=== PATIENT | female | born 1935 | race Asian ===

== ENCOUNTER 2018-05-31 08:20 | Emergency (ER) | END 2018-05-31 11:58 | disposition home or self-care (01) ==

== ENCOUNTER 2018-07-16 10:58 | Emergency (ER) | END 2018-07-16 14:29 | disposition home or self-care (01) ==

== ENCOUNTER 2018-11-27 14:40 | Observation (INO) | payer BC, MEDICARE ==
[~2018-11-27] VITALS: Ht 157.5 cm; Wt 57.2 kg
[~2018-11-27 14:40] MED LIST: ATEN-51 PO; GEMF600T8 PO; RASA1TAB PO; SIN50200 PO
[2018-11-27] MEDS ORDERED: SOD CHLORIDE 0.9% 1,000 ML IV STA (15:33)
[2018-11-27] MEDS ORDERED: KETOROLAC 15 MG INJ IV STA (15:33)
--- NOTE | 2018-11-27 15:36 | ERD ---
ER Documentation Chief Complaint Chief Complaint glf-right shoulder, right wrist pain. no head injury HPI 83-year-old woman with a history of Parkinson's disease requiring walker for ambulation fell today and injured her right shoulder. She denies wrist or elbow pain and does not recall the entire episode. She states she has been feeling weak. She denies fevers or chills, no chest pain or shortness of breath, no headache or blurry vision. ROS All systems reviewed and are negative except as per history of present illness. Medications Home Meds Reported Medications Gemfibrozil* (Gemfibrozil*) 600 Mg Tablet, 600 MG PO BID, TAB 11/27/18 Atenolol* (Atenolol*) 25 Mg Tablet, 25 MG PO DAILY, #30 TAB 11/27/18 Discontinued Reported Medications Gemfibrozil* (Gemfibrozil*) 600 Mg Tablet, 600 MG PO BID, TAB 07/16/18 Atenolol* (Atenolol*) 25 Mg Tablet, 25 MG PO DAILY, #30 TAB 07/16/18 Rasagiline Mesylate* (Azilect*) 1 Mg Tablet, 1 MG PO DAILY, TAB 07/16/18 Carbidopa-Levodopa* (Sinemet CR*) 50-200 Mg Tabsr, 1 TAB PO QID, TAB 07/16/18 Allergies Allergies: Coded Allergies: Penicillins (Verified Allergy, Unknown, 11/27/18) aspirin (Verified Allergy, Unknown, 11/27/18) PMhx/Soc Hypertension, Parkinson's disease History of Surgery: Yes (NATASHA, Hysterectomy) Anesthesia Reaction: No Hx Neurological Disorder: Yes (PARKINSON'S) Hx Respiratory Disorders: No Hx Cardiac Disorders: Yes (HTN) Hx Psychiatric Problems: No Hx Miscellaneous Medical Probl: No Hx Alcohol Use: No Hx Substance Use: No Hx Tobacco Use: No Smoking Status: Never smoker FmHx Family History: No diabetes Physical Exam Vitals Vital Signs Date Temp Pulse Resp B/P (MAP) Pulse Ox O2 O2 Flow FiO2 Time Delivery Rate 11/27/18 77 17 152/70 97 Room Air 18:38 (97) 11/27/18 98.0 63 18 160/79 99 Room Air 17:21 (106) 11/27/18 62 18 99 21 16:56 11/27/18 98.1 72 18 142/64 98 15:12 (90) Physical Exam GENERAL: Well-developed, well-nourished, appears dehydrated, afebrile HEENT: Dry mucous membranes, pink conjunctiva, no cervical spine tenderness or step-off deformities, no goiter, no jaundice or icterus, extraocular movements intact without pain. No submandibular induration, and no pharyngeal erythema NEURO: Alert and oriented 2, able to answer questions and follow commands, no focal deficits or facial asymmetry CARDIAC: Regular rate and rhythm, no murmurs rubs or gallops LUNGS: Clear bilaterally no wheezing crackles or stridor ABDOMEN: Soft nontender, no guarding, no rigidity, no rebound, no psoas sign no obturator sign. Normoactive bowel sounds SKIN: Warm and dry to touch, no abrasions, contusions, or hematomas, no lacerations, no ecchymosis, no target lesions, and without ulcers EXTREMITIES: No clubbing cyanosis or edema, calves are bilaterally symmetrical, no Homans sign, no popliteal cord sign. Distal pulses equal and bilateral PSYCH: Normal affect without agitation or irritability Result Diagram: 11/27/18 1553 11/27/18 1553 Results 24 hrs Laboratory Tests Test 11/27/18 15:53 11/27/18 17:10 White Blood Count 7.1 10^3/ul Red Blood Count 4.12 10^6/ul Hemoglobin 12.2 g/dl Hematocrit 37.1 % Mean Corpuscular Volume 90.0 fl Mean Corpuscular Hemoglobin 29.6 pg Mean Corpuscular Hemoglobin Concent 32.9 g/dl Red Cell Distribution Width 13.2 % Platelet Count 214 10^3/UL Mean Platelet Volume 10.4 fl Immature Granulocytes % 0.600 % Neutrophils % 55.7 % Lymphocytes % 30.1 % Monocytes % 8.1 % Eosinophils % 5.1 % Basophils % 0.4 % Nucleated Red Blood Cells % 0.0 /100WBC Immature Granulocytes # 0.040 10^3/ul Neutrophils # 3.9 10^3/ul Lymphocytes # 2.1 10^3/ul Monocytes # 0.6 10^3/ul Eosinophils # 0.4 10^3/ul Basophils # 0.0 10^3/ul Nucleated Red Blood Cells # 0.0 10^3/ul Sodium Level 139 mmol/L Potassium Level 5.5 mmol/L Chloride Level 98 mmol/L Carbon Dioxide Level 32 mmol/L Anion Gap 9 Blood Urea Nitrogen 23 mg/dl Creatinine 0.81 mg/dl Est Glomerular Filtrat Rate mL/min mL/min Glucose Level 137 mg/dl Calcium Level 9.7 mg/dl Total Bilirubin 0.4 mg/dl Direct Bilirubin 0.00 mg/dl Indirect Bilirubin 0.4 mg/dl Aspartate Amino Transf (AST/SGOT) 25 IU/L Alanine Aminotransferase (ALT/SGPT) 10 IU/L Alkaline Phosphatase 73 IU/L Troponin I < 0.012 ng/ml Total Protein 8.0 g/dl Albumin 4.4 g/dl Globulin 3.60 g/dl Albumin/Globulin Ratio 1.22 Lipase 109 U/L Urine Color YELLOW Urine Clarity CLEAR Urine pH 6.0 Urine Specific [place] 1.012 Urine Ketones NEGATIVE mg/dL Urine Nitrite POSITIVE mg/dL Urine Bilirubin NEGATIVE mg/dL Urine Urobilinogen NEGATIVE mg/dL Urine Leukocyte Esterase 2+ Geni/ul Urine Microscopic RBC 1 /HPF Urine Microscopic WBC 28 /HPF Urine Bacteria MANY /HPF Urine Mucus FEW /HPF Urine Hemoglobin NEGATIVE mg/dL Urine Glucose NEGATIVE mg/dL Urine Total Protein NEGATIVE mg/dl Current Medications Medications Dose Sig/Jolene Start Time Status Last (Trade) Ordered Route PRN Stop Time Admin Dose Reason Admin Sodium 1,000 ml @ Q1H STAT 11/27/18 DC 11/27/18 Chloride 1,000 mls/hr IV 15:33 15:56 11/27/18 16:32 Ketorolac 15 mg ONCE STAT 11/27/18 DC 11/27/18 Tromethamine IV 15:33 15:56 (Toradol) 11/27/18 15:42 Albuterol 5 mg ONCE STAT 11/27/18 DC 11/27/18 (Proventil HHN 16:48 16:55 0.083% (Neb)) 11/27/18 16:49 Albuterol 5 mg ONCE STAT 11/27/18 DC (Proventil HHN 16:55 0.083% (Neb)) 11/27/18 16:56 Ceftriaxone 50 ml @ ONCE ONCE 11/27/18 DC 11/27/18 Sodium 100 mls/hr IVPB 18:30 18:54 11/27/18 18:59 IV Flush 3 ml PER 11/27/18 (NS 3 ml) PROTOCOL IV 19:00 Ondansetron 4 mg Q6H PRN 11/27/18 HCl (Zofran IV 19:00 Inj) NAUSEA/VOMITI NG 650 mg Q6H PRN 11/27/18 Acetaminophen PO .PAIN 1-3 19:00 (Tylenol OR TEMP Tab) 1 tab Q6H PRN 11/27/18 Acetaminophen PO .PAIN 4-6 19:00 / Hydrocodone Bitart ([place] (5/325)) Procedures/MDM IV line was established patient was placed on phototypesetting equipment monitor rhythm strip revealed a sinus rhythm at about 80 bpm with upright P and T waves. Patient was afebrile I administered 1 L normal saline IV, and Toradol 15 mg IV x1 for pain CBC was normal, electrolytes revealed dehydration with a BUN/creatinine of 23/0.8, potassium elevated at 5.5, liver function tests normal, troponin negative I administered albuterol 10 mg via nebulizer for mild hyperkalemia EKG performed, read by me revealed a sinus bradycardia 57 bpm, left axis deviati on, right ventricular conduction delay QRS duration 106 ms, first-degree AV block, no concerning ST elevations or depressions noted X-ray Pelvis 1V Interpreted by me: Bones: No fracture Joints: No dislocation Foreign body: None Chest X-ray 1V Interpreted by me: Soft Tissue: No acute abnormalities Bones: No acute abnormalities Mediastinum/Cardiac Silhouette/Lungs: No acute abnormalities X-ray right shoulder 3V Interpreted by me: Bones: No fracture Joints: No dislocation Foreign body: None CT scan of the brain was negative for acute bleed mass or shift Urinalysis was positive for infection. Urine cultures have been ordered results are pending I will follow-up. I administered ceftriaxone 1 g IV Departure Diagnosis: Primary Impression: Fall with no significant injury Encounter type: initial encounter Qualified Codes: W19.XXXA - Unspecified fall, initial encounter Additional Impressions: Shoulder sprain Encounter type: initial encounter Shoulder sprain type: unspecified sprain Laterality: right Qualified Codes: S43.401A - Unspecified sprain of right shoulder joint, initial encounter Acute dehydration Acute hyperkalemia Acute UTI Parkinsons disease Condition: VIJAY Houston MD Nov 27, 2018 15:36
[2018-11-27] MEDS ORDERED: ALBUTEROL 0.083% (NEB) 2.5 MG/3 ML AMP HHN STA ×2 (16:48→16:55)
[2018-11-27] MEDS ORDERED: GEMF600T8 PO (17:40)
[2018-11-27] MEDS ORDERED: ATEN-51 PO (17:40)
[2018-11-27] MEDS ORDERED: CEFTRIAXONE 1 GM/50 ML (PMX) 50 ML IVPB ONE (18:30)
[2018-11-27] MEDS ORDERED: ONDANSETRON 4 MG INJ IV PRN (19:00)
[2018-11-27] MEDS ORDERED: HYDROCODONE/APAP (5/325) TAB PO PRN (19:00)
[2018-11-27] MEDS ORDERED: ACETAMINOPHEN 325 MG TAB PO PRN (19:00)
[2018-11-27] MEDS ORDERED: NACL 0.9% 3 ML SYG IV SCH (19:00)
[2018-11-27 22:24] VITALS: Ht 157.5 cm; Wt 57.2 kg
[2018-11-27 22:39] VITALS: BP 162/77; PULSE 64; RESP 19
[2018-11-27] MEDS ORDERED: RASA1TAB PO (23:18)
[2018-11-27] MEDS ORDERED: ROPINIROLE (23:21)
[2018-11-27] MEDS ORDERED: SINEMET PO (23:21)
[2018-11-27] MEDS: CARBIDOPA/LEVODOPA (10/100) TAB PO SCH (23:30)
[2018-11-28 02:56] VITALS: BP 142/66; PULSE 66; RESP 18
[2018-11-28] MEDS: CARBIDOPA/LEVODOPA (10/100) TAB PO SCH ×5 (03:28→21:12)
[2018-11-28 07:57] VITALS: BP 175/80; PULSE 69; RESP 18
--- NOTE | 2018-11-28 08:46 | HP ---
Date/Time of Note Date/Time of Note DATE: 11/27/18 TIME: 23:00 Assessment/Plan VTE Prophylaxis Pharmacological prophylaxis: heparin Lines/Catheters IV Catheter Type (from Nrsg): Peripheral IV Assessment/Plan Assessment/Plan 1. Status post mechanical fall -Per patient, her walker slid under her causing her to fall. Mainly complaining of right shoulder pain. -Head CT, shoulder and pelvic imaging without acute findings -Pain management -PT eval 2. Parkinson's disease: I noted a minor right upper extremity tremor -Continue home medication 3. UTI: -Antibiotic -Follow-up culture result 4. Mild hyperkalemia: Monitor Result Diagram: 11/28/18 0439 11/28/18 0438 Results 24hrs Laboratory Tests Test 11/27/18 15:53 11/27/18 17:10 11/27/18 21:18 11/28/18 04:38 White Blood Count 7.1 Red Blood Count 4.12 L Hemoglobin 12.2 Hematocrit 37.1 Mean Corpuscular 90.0 Volume Mean Corpuscular 29.6 Hemoglobin Mean Corpuscular 32.9 Hemoglobin Concent Red Cell 13.2 Distribution Width Platelet Count 214 Mean Platelet Volume 10.4 Immature 0.600 H Granulocytes % Neutrophils % 55.7 Lymphocytes % 30.1 Monocytes % 8.1 Eosinophils % 5.1 Basophils % 0.4 Nucleated Red Blood 0.0 Cells % Immature 0.040 H Granulocytes # Neutrophils # 3.9 Lymphocytes # 2.1 Monocytes # 0.6 Eosinophils # 0.4 Basophils # 0.0 Nucleated Red Blood 0.0 Cells # Sodium Level 139 138 139 Potassium Level 5.5 H 3.9 3.9 Chloride Level 98 101 105 Carbon Dioxide Level 32 H 28 28 Anion Gap 9 9 6 Blood Urea Nitrogen 23 H 22 H 18 Creatinine 0.81 0.70 0.57 Est Glomerular Filtrat Rate mL/min Glucose Level 137 122 115 Calcium Level 9.7 9.1 9.0 Total Bilirubin 0.4 0.6 Direct Bilirubin 0.00 0.00 Indirect Bilirubin 0.4 0.6 Aspartate Amino 25 21 Transf (AST/SGOT) Alanine 10 L 12 L Aminotransferase (AL T/SGPT) Alkaline Phosphatase 73 66 Troponin I < 0.012 Total Protein 8.0 6.9 # Albumin 4.4 3.6 Globulin 3.60 H 3.30 H Albumin/Globulin 1.22 1.09 Ratio Lipase 109 Urine Color YELLOW Urine Clarity CLEAR Urine pH 6.0 Urine Specific 1.012 [place] Urine Ketones NEGATIVE Urine Nitrite POSITIVE A Urine Bilirubin NEGATIVE Urine Urobilinogen NEGATIVE Urine Leukocyte 2+ H Esterase Urine Microscopic 1 RBC Urine Microscopic 28 H WBC Urine Bacteria MANY A Urine Mucus FEW A Urine Hemoglobin NEGATIVE Urine Glucose NEGATIVE Urine Total Protein NEGATIVE Hemoglobin A1c 6.2 H Magnesium Level 2.0 Test 11/28/18 04:39 White Blood Count 5.8 Red Blood Count 3.92 L Hemoglobin 11.3 L Hematocrit 34.7 L Mean Corpuscular 88.5 Volume Mean Corpuscular 28.8 L Hemoglobin Mean Corpuscular 32.6 Hemoglobin Concent Red Cell 13.2 Distribution Width Platelet Count 181 Mean Platelet Volume 10.8 H Immature 0.700 H Granulocytes % Neutrophils % 58.7 Lymphocytes % 28.1 Monocytes % 7.9 Eosinophils % 4.1 Basophils % 0.5 Nucleated Red Blood 0.0 Cells % Immature 0.040 H Granulocytes # Neutrophils # 3.4 Lymphocytes # 1.6 Monocytes # 0.5 Eosinophils # 0.2 Basophils # 0.0 Nucleated Red Blood 0.0 Cells # HPI/ROS Admit Date/Time Admit Date/Time Nov 27, 2018 at 19:42 Hx of Present Illness This is an 83-year-old female with a history of Parkinson's disease who uses a walker presented to ER status post fall. She said she was getting of an elevator when her walker slid under her and fell on her right side. She is not sure whether or not she lost consciousness. She has been complaining of mostly right shoulder pain. In the ER, head CT, shoulder and pelvic imaging without acute findings. Lab shows a potassium of 5.5 otherwise basic labs stable. UA consistent with UTI. PMH/Family/Social Past Medical History Medical History: other (See HPI) Medications Current Medications IV Flush (NS 3 ml) 3 ml PER PROTOCOL IV ; Start 11/27/18 at 19:00 Ondansetron HCl (Zofran Inj) 4 mg Q6H PRN IV NAUSEA/VOMITING; Start 11/27/18 at 19:00 Acetaminophen (Tylenol Tab) 650 mg Q6H PRN PO .PAIN 1-3 OR TEMP; Start 11/27/18 at 19:00 Acetaminophen/ Hydrocodone Bitart ([place] (5/325)) 1 tab Q6H PRN PO .PAIN 4-6; Start 11/27/18 at 19:00 Carbidopa/Levodopa (Sinemet ()) 1 tab QID PO Last administered on 11/28/18at 08:32; Admin Dose 1 TAB; Start 11/27/18 at 23:30 Atenolol (Tenormin) 25 mg DAILY PO ; Start 11/28/18 at 09:00; Status UNV Gemfibrozil (Lopid) 600 mg BID PO ; Start 11/28/18 at 09:00; Status UNV Rasagiline (Azilect) 1 mg DAILY PO ; Start 11/28/18 at 09:00; Status UNV Coded Allergies: Penicillins (Verified Allergy, Unknown, 11/27/18) aspirin (Verified Allergy, Unknown, 11/27/18) Past Surgical History Past Surgical Hx: other (See HPI) Family History Significant Family History: no pertinent family hx Social History Alcohol Use: none Smoking Status: Never smoker Drug Use: none Exam/Review of Systems Vital Signs Vitals Vital Signs Date Temp Pulse Resp B/P (MAP) Pulse Ox O2 O2 Flow FiO2 Time Delivery Rate 11/28/18 97.9 69 18 175/80 95 Room Air 07:57 (111) 11/27/18 21 16:56 Exam Constitutional: alert, oriented Head: normocephalic, atraumatic Eyes: EOMI, PERRL Respiratory: clear to auscultation, normal air movement Cardiovascular: regular rate and rhythm, nl pulses Gastrointestinal: soft Musculoskeletal: other (Minimal right shoulder pain elicited. No obvious deformity. Patient has full range of motion) Extremities: normal pulses CLAIRE MENDOZA MD Nov 28, 2018 08:45
[2018-11-28] MEDS: ATENOLOL 25 MG TAB PO SCH (10:36)
[2018-11-28] MEDS: GEMFIBROZIL 600 MG TAB PO SCH ×2 (13:00→21:12)
[2018-11-28] MEDS: RASAGILINE MESYLATE 1 MG TAB PO SCH (13:02)
--- NOTE | 2018-11-28 14:04 | PN ---
Date/Time of Note Date/Time of Note DATE: 11/28/18 TIME: 13:58 Assessment/Plan VTE Prophylaxis Risk score (from Ns)>0 risk: 5 SCD applied (from Ns): Yes SCD contraindicated: low risk/ambulating Pharmacological prophylaxis: LMWH Lines/Catheters IV Catheter Type (from Nrs): [place] Assessment/Plan Hospital Course Assessment and plan 1. Mechanical fall, stable, continue PT 2. Failure to thrive, sniff versus back to assisted living 3. Shoulder pain, no evidence of fracture continue supportive care conservative management 4. DJD 5. Osteoporosis? 6. Old stroke by imaging? Continue risk factor modification. DNR? 7. Parkinson's disorder, stable, continue medical management 8. Chronic hypertension? 9. Chronic choledocholithiasis 10. History of appendectomy, hysterectomy Subjective: Events noted participated with PT Objective: Vital signs stable Physical exam No pallor JVD droop or carotid bruits Regular no m/r/g Clear Benign No edema Neuro: Grossly nonfocal Result Diagram: 11/28/18 0439 11/28/18 0438 Results 24hrs Laboratory Tests Test 11/27/18 15:53 11/27/18 17:10 11/27/18 21:18 11/28/18 04:38 White Blood Count 7.1 Red Blood Count 4.12 L Hemoglobin 12.2 Hematocrit 37.1 Mean Corpuscular 90.0 Volume Mean Corpuscular 29.6 Hemoglobin Mean Corpuscular 32.9 Hemoglobin Concent Red Cell 13.2 Distribution Width Platelet Count 214 Mean Platelet Volume 10.4 Immature 0.600 H Granulocytes % Neutrophils % 55.7 Lymphocytes % 30.1 Monocytes % 8.1 Eosinophils % 5.1 Basophils % 0.4 Nucleated Red Blood 0.0 Cells % Immature 0.040 H Granulocytes # Neutrophils # 3.9 Lymphocytes # 2.1 Monocytes # 0.6 Eosinophils # 0.4 Basophils # 0.0 Nucleated Red Blood 0.0 Cells # Sodium Level 139 138 139 Potassium Level 5.5 H 3.9 3.9 Chloride Level 98 101 105 Carbon Dioxide Level 32 H 28 28 Anion Gap 9 9 6 Blood Urea Nitrogen 23 H 22 H 18 Creatinine 0.81 0.70 0.57 Est Glomerular Filtrat Rate mL/min Glucose Level 137 122 115 Calcium Level 9.7 9.1 9.0 Total Bilirubin 0.4 0.6 Direct Bilirubin 0.00 0.00 Indirect Bilirubin 0.4 0.6 Aspartate Amino 25 21 Transf (AST/SGOT) Alanine 10 L 12 L Aminotransferase (AL T/SGPT) Alkaline Phosphatase 73 66 Troponin I < 0.012 Total Protein 8.0 6.9 # Albumin 4.4 3.6 Globulin 3.60 H 3.30 H Albumin/Globulin 1.22 1.09 Ratio Lipase 109 Urine Color YELLOW Urine Clarity CLEAR Urine pH 6.0 Urine Specific 1.012 [place] Urine Ketones NEGATIVE Urine Nitrite POSITIVE A Urine Bilirubin NEGATIVE Urine Urobilinogen NEGATIVE Urine Leukocyte 2+ H Esterase Urine Microscopic 1 RBC Urine Microscopic 28 H WBC Urine Bacteria MANY A Urine Mucus FEW A Urine Hemoglobin NEGATIVE Urine Glucose NEGATIVE Urine Total Protein NEGATIVE Hemoglobin A1c 6.2 H Magnesium Level 2.0 Test 11/28/18 04:39 White Blood Count 5.8 Red Blood Count 3.92 L Hemoglobin 11.3 L Hematocrit 34.7 L Mean Corpuscular 88.5 Volume Mean Corpuscular 28.8 L Hemoglobin Mean Corpuscular 32.6 Hemoglobin Concent Red Cell 13.2 Distribution Width Platelet Count 181 Mean Platelet Volume 10.8 H Immature 0.700 H Granulocytes % Neutrophils % 58.7 Lymphocytes % 28.1 Monocytes % 7.9 Eosinophils % 4.1 Basophils % 0.5 Nucleated Red Blood 0.0 Cells % Immature 0.040 H Granulocytes # Neutrophils # 3.4 Lymphocytes # 1.6 Monocytes # 0.5 Eosinophils # 0.2 Basophils # 0.0 Nucleated Red Blood 0.0 Cells # Exam/Review of Systems Exam Vitals Vital Signs Date Temp Pulse Resp B/P (MAP) Pulse Ox O2 O2 Flow FiO2 Time Delivery Rate 11/28/18 97.9 69 18 175/80 95 Room Air 07:57 (111) 11/27/18 21 16:56 Results Results 24hrs Laboratory Tests Test 11/27/18 15:53 11/27/18 17:10 11/27/18 21:18 11/28/18 04:38 White Blood Count 7.1 Red Blood Count 4.12 L Hemoglobin 12.2 Hematocrit 37.1 Mean Corpuscular 90.0 Volume Mean Corpuscular 29.6 Hemoglobin Mean Corpuscular 32.9 Hemoglobin Concent Red Cell 13.2 Distribution Width Platelet Count 214 Mean Platelet Volume 10.4 Immature 0.600 H Granulocytes % Neutrophils % 55.7 Lymphocytes % 30.1 Monocytes % 8.1 Eosinophils % 5.1 Basophils % 0.4 Nucleated Red Blood 0.0 Cells % Immature 0.040 H Granulocytes # Neutrophils # 3.9 Lymphocytes # 2.1 Monocytes # 0.6 Eosinophils # 0.4 Basophils # 0.0 Nucleated Red Blood 0.0 Cells # Sodium Level 139 138 139 Potassium Level 5.5 H 3.9 3.9 Chloride Level 98 101 105 Carbon Dioxide Level 32 H 28 28 Anion Gap 9 9 6 Blood Urea Nitrogen 23 H 22 H 18 Creatinine 0.81 0.70 0.57 Est Glomerular Filtrat Rate mL/min Glucose Level 137 122 115 Calcium Level 9.7 9.1 9.0 Total Bilirubin 0.4 0.6 Direct Bilirubin 0.00 0.00 Indirect Bilirubin 0.4 0.6 Aspartate Amino 25 21 Transf (AST/SGOT) Alanine 10 L 12 L Aminotransferase (AL T/SGPT) Alkaline Phosphatase 73 66 Troponin I < 0.012 Total Protein 8.0 6.9 # Albumin 4.4 3.6 Globulin 3.60 H 3.30 H Albumin/Globulin 1.22 1.09 Ratio Lipase 109 Urine Color YELLOW Urine Clarity CLEAR Urine pH 6.0 Urine Specific 1.012 [place] Urine Ketones NEGATIVE Urine Nitrite POSITIVE A Urine Bilirubin NEGATIVE Urine Urobilinogen NEGATIVE Urine Leukocyte 2+ H Esterase Urine Microscopic 1 RBC Urine Microscopic 28 H WBC Urine Bacteria MANY A Urine Mucus FEW A Urine Hemoglobin NEGATIVE Urine Glucose NEGATIVE Urine Total Protein NEGATIVE Hemoglobin A1c 6.2 H Magnesium Level 2.0 Test 11/28/18 04:39 White Blood Count 5.8 Red Blood Count 3.92 L Hemoglobin 11.3 L Hematocrit 34.7 L Mean Corpuscular 88.5 Volume Mean Corpuscular 28.8 L Hemoglobin Mean Corpuscular 32.6 Hemoglobin Concent Red Cell 13.2 Distribution Width Platelet Count 181 Mean Platelet Volume 10.8 H Immature 0.700 H Granulocytes % Neutrophils % 58.7 Lymphocytes % 28.1 Monocytes % 7.9 Eosinophils % 4.1 Basophils % 0.5 Nucleated Red Blood 0.0 Cells % Immature 0.040 H Granulocytes # Neutrophils # 3.4 Lymphocytes # 1.6 Monocytes # 0.5 Eosinophils # 0.2 Basophils # 0.0 Nucleated Red Blood 0.0 Cells # Medications Medication Current Medications IV Flush (NS 3 ml) 3 ml PER PROTOCOL IV ; Start 11/27/18 at 19:00 Ondansetron HCl (Zofran Inj) 4 mg Q6H PRN IV NAUSEA/VOMITING; Start 11/27/18 at 19:00 Acetaminophen (Tylenol Tab) 650 mg Q6H PRN PO .PAIN 1-3 OR TEMP; Start 11/27/18 at 19:00 Acetaminophen/ Hydrocodone Bitart ([place] ()) 1 tab Q6H PRN PO .PAIN 4-6; Start 11/27/18 at 19:00 Carbidopa/Levodopa (Sinemet ()) 1 tab QID PO Last administered on 11/28/18at 13:00; Admin Dose 1 TAB; Start 11/27/18 at 23:30 Atenolol (Tenormin) 25 mg DAILY PO Last administered on 11/28/18at 10:36; Admin Dose 25 MG; Start 11/28/18 at 09:00 Gemfibrozil (Lopid) 600 mg BID PO Last administered on 11/28/18at 13:00; Admin Dose 600 MG; Start 11/28/18 at 09:00 Rasagiline (Azilect) 1 mg DAILY PO Last administered on 11/28/18at 13:02; Admin Dose 1 MG; Start 11/28/18 at 10:30 ANGELES CANDELARIO MD Nov 28, 2018 14:04
[2018-11-28 14:11] VITALS: BP 124/60; PULSE 65; RESP 18
[2018-11-28 19:37] VITALS: BP 136/69; PULSE 73; RESP 16
[2018-11-29 02:16] VITALS: BP 143/75; PULSE 64; RESP 18
[2018-11-29 07:50] VITALS: BP 172/79; PULSE 74; RESP 18
[2018-11-29] MEDS: RASAGILINE MESYLATE 1 MG TAB PO SCH (08:24)
[2018-11-29] MEDS: GEMFIBROZIL 600 MG TAB PO SCH ×2 (08:24→21:56)
[2018-11-29] MEDS: ATENOLOL 25 MG TAB PO SCH (08:25)
[2018-11-29] MEDS: ENOXAPARIN 30 MG/0.3 ML SYG SC SCH (08:26)
[2018-11-29] MEDS: CARBIDOPA/LEVODOPA (10/100) TAB PO SCH ×4 (10:01→21:56)
--- NOTE | 2018-11-29 11:21 | PDOCDIS ---
Discharge Instructions CONDITION [id number] Patient Condition: [id number] Stable HOME CARE INSTRUCTIONS: [id number] Diet Instructions: [id number] Regular ACTIVITY: [id number] Activity Restrictions: [id number] Slowly Increase Activity Rest between Activity Avoid heavy lifting FOLLOW UP/APPOINTMENTS Follow-up Plan appt PCP ANGELES Thompson MD Nov 29, 2018 11:21
[2018-11-29] MEDS ORDERED: ENOX30DI2 SC (11:23)
[2018-11-29] MEDS ORDERED: ACET325T33 PO (11:23)
[2018-11-29] MEDS ORDERED: HYDR-3601 PO (11:23)
--- NOTE | 2018-11-29 12:24 | DS ---
Date/Time of Note Date/Time of Note DATE: 11/29/18 TIME: 12:21 Discharge Summary Admission/Discharge Info Admit Date/Time Nov 27, 2018 at 19:42 Discharge Date/Time Patient Condition: Stable Procedures Chest x-ray: No acute process CAT scan brain IMPRESSION: 1. No evidence of acute intracranial hemorrhage, infarcts, or acute intrac ranial pathology. 2. Mild chronic microvascular ischemic disease and diffuse volume loss unchanged 3. Chronic left basal ganglia lacunar infarct 4. Moderate atherosclerotic vascular disease X-ray pelvis: No acute process. Positive lumbosacral DJD Right shoulder x-ray series FINDINGS: Bony alignment and density appears unremarkable with no acute fracture, dislocation noted. Right AC joint also appears patent. Cystic changes in the right humeral head suggestive of degenerative changes. IMPRESSION: No acute fracture, dislocation noted. Hx of Present Illness sp fall at assisted living Hospital Course Hospitalist Course/ Hospital Coverage Assessment and plan 1. Mechanical fall, stable, cont PT. dc home/ ASL vs SNF for assistance of ADLs. She is given options. 2. Failure to thrive, sniff versus back to assisted living 3. Shoulder pain, no evidence of fracture continue supportive care conservative management 4. DJD 5. Osteoporosis? 6. Old stroke by imaging? Continue risk factor modification. DNR? 7. Parkinson's disorder, stable, continue medical management 8. Chronic hypertension? 9. Chronic choledocholithiasis 10. History of appendectomy, hysterectomy Subjective: Events noted participated with PT Objective: Vital signs stable Physical exam No pallor JVD droop or carotid bruits Regular no m/r/g Clear Benign No edema Neuro: Grossly nonfocal Home Meds Active Scripts Hydrocodone Bit-Acetaminophen (Hydrocodone Bit-APAP) 5-325MG Tablet, 1 TAB PO Q6H PRN for .PAIN 4-6 for 10 Days, TAB Prov:ANGELES CANDELARIO MD 11/29/18 Acetaminophen* (Tylenol*) 325 Mg Tablet, 650 MG PO Q6H PRN for .PAIN 1-3 OR TEMP for 1 Day, #1 TAB Prov:ANGELES CANDELARIO MD 11/29/18 Enoxaparin Sodium* (Enoxaparin Sodium*) 30 Mg/0.3 Ml Syringe, 30 MG SC DAILY for 7 Days, #10 Prov:ANGELES CANDELARIO MD 11/29/18 Reported Medications [Ropinirole] No Conflict Check 11/27/18 [Sinemet] No Conflict Check, PO QID 11/27/18 Rasagiline Mesylate* (Azilect*) 1 Mg Tablet, 1 MG PO DAILY, TAB 11/27/18 Gemfibrozil* (Gemfibrozil*) 600 Mg Tablet, 600 MG PO BID, TAB 11/27/18 Atenolol* (Atenolol*) 25 Mg Tablet, 25 MG PO DAILY, #30 TAB 11/27/18 Discontinued Reported Medications Gemfibrozil* (Gemfibrozil*) 600 Mg Tablet, 600 MG PO BID, TAB 07/16/18 Atenolol* (Atenolol*) 25 Mg Tablet, 25 MG PO DAILY, #30 TAB 07/16/18 Rasagiline Mesylate* (Azilect*) 1 Mg Tablet, 1 MG PO DAILY, TAB 07/16/18 Carbidopa-Levodopa* (Sinemet CR*) 50-200 Mg Tabsr, 1 TAB PO QID, TAB 07/16/18 Follow-up Plan appt PCP 1wk Primary Care Provider Not On Staff Doctor Time spent on discharge: < 30 minutes ANGELES CANDELARIO MD Nov 29, 2018 12:24
[2018-11-29 14:34] VITALS: BP 136/71; PULSE 75; RESP 18
[2018-11-29 19:40] VITALS: BP 110/69; PULSE 79; RESP 16
[2018-11-30 01:53] VITALS: BP 140/68; PULSE 74; RESP 20
[2018-11-30 07:38] VITALS: BP 160/74; PULSE 68; RESP 18
[2018-11-30] MEDS: RASAGILINE MESYLATE 1 MG TAB PO SCH (08:36)
[2018-11-30] MEDS: GEMFIBROZIL 600 MG TAB PO SCH (08:37)
[2018-11-30] MEDS: CARBIDOPA/LEVODOPA (10/100) TAB PO SCH (08:37)
[2018-11-30] MEDS: ATENOLOL 25 MG TAB PO SCH (08:38)
[2018-11-30] MEDS: ENOXAPARIN 30 MG/0.3 ML SYG SC SCH (08:40)
[2018-11-30] MEDS ORDERED: CIPR500T4 PO (11:08)
--- NOTE | 2018-11-30 11:59 | DS ---
Date/Time of Note Date/Time of Note DATE: 11/30/18 TIME: 11:57 Discharge Summary Admission/Discharge Info Admit Date/Time Nov 27, 2018 at 19:42 Discharge Date/Time Patient Condition: Stable Procedures CAT scan of the brain no acute process. Concern for old stroke by imaging. Right shoulder series: No fracture Hx of Present Illness sp fall at assisted living Hospital Course Hospitalist Course/ Hospital Coverage Assessment and plan 1. Mechanical fall, stable, cont PT. dc home/ [facility]. Home health PT arranged. Refused snf. 2. Failure to thrive, 3. Shoulder pain, no evidence of fracture; continue supportive care conservative management 4. DJD 5. Osteoporosis? 6. Old stroke by imaging? Continue risk factor modification. Risk of asa at her age outweigh benefits. DNR? 7. Parkinson's disorder, stable, continue medical management 8. Chronic hypertension? 9. Chronic choledocholithiasis 10. History of appendectomy, hysterectomy 11. Acute cystitis, stable, finish 3 days of Cipro Subjective: 11/3011 events noted participated with PT 11/30 feels better more active with PT. Son updated at bedside Objective: Vital signs stable Physical exam No pallor JVD droop or carotid bruits Regular no m/r/g Clear Benign No edema Neuro: Grossly nonfocal Home Meds Active Scripts Ciprofloxacin Hcl* (Ciprofloxacin Hcl*) 500 Mg Tablet, 500 MG PO BID for 3 Days, #7 TAB Prov:ANGELES CANDELARIO MD 11/30/18 Hydrocodone Bit-Acetaminophen (Hydrocodone Bit-APAP) 5-325MG Tablet, 1 TAB PO Q6H PRN for .PAIN 4-6 for 10 Days, TAB Prov:ANGELES CANDELARIO MD 11/29/18 Acetaminophen* (Tylenol*) 325 Mg Tablet, 650 MG PO Q6H PRN for .PAIN 1-3 OR TEMP for 1 Day, #1 TAB Prov:ANGELES CANDELARIO MD 11/29/18 Enoxaparin Sodium* (Enoxaparin Sodium*) 30 Mg/0.3 Ml Syringe, 30 MG SC DAILY for 7 Days, #10 Prov:ANGELES CANDELARIO MD 11/29/18 Reported Medications [Ropinirole] No Conflict Check 11/27/18 [Sinemet] No Conflict Check, PO QID 11/27/18 Rasagiline Mesylate* (Azilect*) 1 Mg Tablet, 1 MG PO DAILY, TAB 11/27/18 Gemfibrozil* (Gemfibrozil*) 600 Mg Tablet, 600 MG PO BID, TAB 11/27/18 Atenolol* (Atenolol*) 25 Mg Tablet, 25 MG PO DAILY, #30 TAB 11/27/18 Discontinued Reported Medications Gemfibrozil* (Gemfibrozil*) 600 Mg Tablet, 600 MG PO BID, TAB 07/16/18 Atenolol* (Atenolol*) 25 Mg Tablet, 25 MG PO DAILY, #30 TAB 07/16/18 Rasagiline Mesylate* (Azilect*) 1 Mg Tablet, 1 MG PO DAILY, TAB 07/16/18 Carbidopa-Levodopa* (Sinemet CR*) 50-200 Mg Tabsr, 1 TAB PO QID, TAB 07/16/18 Follow-up Plan appt PCP 1wk Primary Care Provider Not On Staff Doctor Time spent on discharge: < 30 minutes ANGELES CANDELARIO MD Nov 30, 2018 11:59
== END 2018-11-30 12:11 | disposition home health service (06) ==
LOC: E/R 14:40 → 2NE 19:42
PROVIDERS: ADMIT Internal Medicine; ATTEND Internal Medicine
DX: N30.00 Acute cystitis without hematuria (principal); S49.91XA Unspecified injury of right shoulder and upper arm, initial encounter; W19.XXXA Unspecified fall, initial encounter; Y92.129 Unspecified place in nursing home as the place of occurrence of the external cause; G20 Parkinson's disease; E87.5 Hyperkalemia; R62.7 Adult failure to thrive; M19.90 Unspecified osteoarthritis, unspecified site; I10 Essential (primary) hypertension; Z90.710 Acquired absence of both cervix and uterus; K80.50 Calculus of bile duct without cholangitis or cholecystitis without obstruction; Z86.73 Personal history of transient ischemic attack (TIA), and cerebral infarction without residual deficits
CPT/HCPCS: 36415; 70450; 71045; 72170; 73030; 80048; 80053; 81001; 83036; 83690; 83735; 84484; 85025; 87086; 93005; 94664; 96374; 96375; 97110; 97116; 97161; 97530; 99285; G0378; J0696; J1650; J1885; J7030

== ENCOUNTER 2019-04-23 18:40 | Emergency (ER) | payer BC ==
[~2019-04-23] VITALS: Ht 157.5 cm; Wt 54.5 kg
[~2019-04-23 18:40] MED LIST changes: +ACET325T33 PO; +CIPR500T4 PO; +ENOX30DI2 SC; +HYDR-3601 PO; +MIRT30TA PO; +ROPI2TAB25 PO; +ROPINIROLE; +SINEMET PO
[2019-04-23 19:07] VITALS: Ht 157.5 cm; Wt 54.5 kg
[2019-04-23 22:01] VITALS: BP 118/74; PULSE 78; RESP 16
== END 2019-04-23 22:35 | disposition home or self-care (01) ==
LOC: E/R 18:40
DX: I87.2 Venous insufficiency (chronic) (peripheral) (principal); G20 Parkinson's disease
CPT/HCPCS: 80048; 85025; 93970